=== PATIENT | male | born 1945 | race Caucasian/White ===

== ENCOUNTER 2017-02-11 00:32 | Inpatient (IN) | payer OTHER ==
[~2017-02-11] VITALS: Ht 177.8 cm; Wt 146.0 kg
[~2017-02-11 00:32] MED LIST: AUGMENTIN875 MG PO; BACTRIM,SEPT1 TABLET PO; CENTRUM SILVER1 EAC1 PO; ERGOCALCIF50000 UNIT PO; HYDROCHLOROTH12.5 M3 PO; IRON325 M1 PO; KEFLEX500 MG PO; LISINOPRIL2.5 MG PO; PRINZIDE 10-121 EACH PO; SYNTHROID125 MCG PO; TAMSULOSIN HCL0.4 MG PO; TYLENOL REGULA325 MG PO; VITAMIN B-12500 MC5 SL
[2017-02-11 01:06] LABS: HEMATOCRIT 34.4 % (38.0-50.0); MCH 36.3 PG (29.0-34.0); MCHC 34.3 G/DL (30.0-36.0); MCV 105.8 FL (86-99); MEAN PLAT.VOLUME 9.9 uM^3 (9.0-12.4); PLATELET COUNT 108 K/uL (156-360); RBC DIS.WIDTH-CV 15.2 % (11.8-14.6); RBC DIS.WIDTH-SD 59.4 % (39-53); RED BLOOD COUNT 3.25 M/uL (4.00-5.50); WHITE BLOOD COUNT 6.3 K/uL (4.1-10.2)
[2017-02-11 01:18] LABS: CHLORIDE 101 mEq/L (99-109); POTASSIUM 4.7 mEq/L (3.7-5.4); SODIUM 130 mEq/L (136-147)
[2017-02-11 01:20] LABS: GLUCOSE 129 mg/dL (70-99)
[2017-02-11 01:21] LABS: ANION GAP 7 MEQ/L (2-14)
[2017-02-11 01:22] LABS: TOTAL BILIRUBIN 3.7 mg/dL (0.0-1.0)
[2017-02-11 01:23] LABS: ALKALINE PHOSPHATASE 168 IU/L (3-129)
[2017-02-11 01:24] LABS: GFR ESTIMATE (CALCULATED) > 59 mL/min/
[2017-02-11 01:25] LABS: UREA NITROGEN (BUN) 16 mg/dL (9-23)
[2017-02-11 01:26] LABS: TROP-I INTERPRETATION NEGATIVE; TROPONIN-I < 0.01 ng/mL (0.0-0.30)
[2017-02-11 01:58] LABS: ADD MIUA? YES; BILIRUBIN NEGATIVE; BLOOD NEGATIVE; COLOR AMBER ((YELLOW)); GLUCOSE (STRIP) NEGATIVE; KETONES NEGATIVE; LEUKOCYTES NEGATIVE; NITRITE NEGATIVE; PROTEIN (STRIP) 30; SPECIFIC GRAVITY 1.019 (1.000-1.030)
[2017-02-11 02:27] LABS: BACTERIA RARE /HPF; CALCIUM OXALATE CRYSTALS OCC /HPF; CASTS NONE SEEN /LPF; CRYSTALS PRESENT; EPITHELIAL CELLS RARE /HPF; MUCUS NONE SEEN /LPF; RED BLOOD CELLS RARE /HPF (0-5); UCUL ADDED? NO; WHITE BLOOD CELLS NONE SEEN /HPF (0-5)
[2017-02-11] MEDS ORDERED: ALDACTONE100 MG PO (04:01)
[2017-02-11] MEDS ORDERED: LASIX40 MG PO (04:02)
[2017-02-11] MEDS ORDERED: ROXICODONE5 MG PO (04:04)
[2017-02-11 05:19] VITALS: BP 139/70
[2017-02-11 05:20] VITALS: BP 139/70
[2017-02-11 08:00] VITALS: BP 132/79
[2017-02-11 11:52] VITALS: BP 134/82
[2017-02-11] MEDS ORDERED: ERYTHROMYC1 APPLICAT BOTH EYES (12:12)
[2017-02-11] MEDS ORDERED: MULTI VITAMIN1 EACH PO (12:12)
[2017-02-11] MEDS ORDERED: VITAMIN D2000 UNIT PO (12:13)
[2017-02-11] MEDS ORDERED: TYLENOL REGULA325 MG PO (12:13)
[2017-02-11] MEDS ORDERED: ALEVE220 MG PO (12:18)
[2017-02-11 15:20] VITALS: BP 131/76
[2017-02-11 19:00] VITALS: BP 119/66
[2017-02-12] VITALS (7 sets, daily range): BP systolic 108–125; BP diastolic 52–83
[2017-02-12 05:32] LABS: EOSINOPHIL (%) 4.4 % (0-5); EOSINOPHIL COUNT 0.2 K/uL (0-0.3); HEMATOCRIT 32.5 % (38.0-50.0); IMMATURE GRANULOCYTE (%) 0.5 % (0.0-0.7); INSTRUMENT ABS NEUTROPHIL CT 1.8 K/uL; LYMPHOCYTE COUNT 0.9 K/uL (1.0-2.8); MCH 36.2 PG (29.0-34.0); MCHC 34.2 G/DL (30.0-36.0); MCV 105.9 FL (86-99); MEAN PLAT.VOLUME 9.9 uM^3 (9.0-12.4); MONOCYTE COUNT 0.9 K/uL (0-0.8); NEUTROPHIL (%) 47.1 % (45-76); NEUTROPHIL COUNT 1.8 K/uL (1.8-6.4); PLATELET COUNT 82 K/uL (156-360); RBC DIS.WIDTH-CV 15.5 % (11.8-14.6); RBC DIS.WIDTH-SD 59.9 % (39-53); RED BLOOD COUNT 3.07 M/uL (4.00-5.50); WHITE BLOOD COUNT 3.9 K/uL (4.1-10.2)
[2017-02-12 05:40] LABS: INTER. NORMALIZED RATIO 1.4; PROTHROMBIN TIME 15.6 SEC (10.2-12.9)
[2017-02-12 05:56] LABS: ALKALINE PHOSPHATASE 127 IU/L (3-129); ANION GAP 6 MEQ/L (2-14); CHLORIDE 101 MEQ/L (99-109); GFR ESTIMATE (CALCULATED) > 59 mL/min/; GLUCOSE 129 mg/dL (70-99); SAMPLE HEMOLYSIS CHECK 0; SAMPLE ICTERIC CHECK 1; SAMPLE LIPEMIA CHECK 0; SODIUM 131 MEQ/L (136-147); TOTAL BILIRUBIN 3.2 MG/DL (0.0-1.0); UREA NITROGEN (BUN) 12 mg/dL (9-23)
[2017-02-13 04:00] VITALS: BP 103/51
[2017-02-13 05:54] LABS: EOSINOPHIL COUNT 0.3 K/uL (0-0.3); HEMATOCRIT 34.9 % (38.0-50.0); IMMATURE GRANULOCYTE (%) 0.5 % (0.0-0.7); INSTRUMENT ABS NEUTROPHIL CT 1.8 K/uL; LYMPHOCYTE COUNT 1.1 K/uL (1.0-2.8); MCH 36.6 PG (29.0-34.0); MCHC 34.1 G/DL (30.0-36.0); MCV 107.4 FL (86-99); MONOCYTE (%) 21.8 % (3-12); MONOCYTE COUNT 0.9 K/uL (0-0.8); NEUTROPHIL (%) 42.6 % (45-76); NEUTROPHIL COUNT 1.8 K/uL (1.8-6.4); PLATELET COUNT 101 K/uL (156-360); RBC DIS.WIDTH-CV 15.3 % (11.8-14.6); RBC DIS.WIDTH-SD 61.1 % (39-53); RED BLOOD COUNT 3.25 M/uL (4.00-5.50); WHITE BLOOD COUNT 4.1 K/uL (4.1-10.2)
[2017-02-13 06:23] LABS: ALKALINE PHOSPHATASE 153 IU/L (3-129); ANION GAP 4 MEQ/L (2-14); CHLORIDE 98 MEQ/L (99-109); GFR ESTIMATE (CALCULATED) > 59 mL/min/; POTASSIUM 4.2 MEQ/L (3.7-5.4); SAMPLE HEMOLYSIS CHECK 0; SAMPLE ICTERIC CHECK 0; SAMPLE LIPEMIA CHECK 0; SODIUM 133 MEQ/L (136-147); TOTAL BILIRUBIN 2.8 MG/DL (0.0-1.0); UREA NITROGEN (BUN) 12 mg/dL (9-23)
[2017-02-13 06:24] LABS: GLUCOSE 95 mg/dL (70-99)
[2017-02-13 07:37] VITALS: BP 118/56
[2017-02-13] MEDS ORDERED: CEFADROXIL1 GM PO (08:11)
== END 2017-02-13 10:22 | disposition home or self-care (01) | DRG 603 ==
LOC: EME 00:32 → EDOF 03:12 → ENRESERV 03:17 → CANRESERV 03:34 → 4EAST 03:54 → EDOF 03:54 → ENRESERV 03:59 → 4EAST 05:09 → ENRESERV 02-13 09:06 → CANRESERV 02-13 09:06 → 4EAST 02-13 10:22
PROVIDERS: Emergency Medicine; Nurse Practitioner Adult Health; Physician Assistant Medical
DX: L03.115 Cellulitis of right lower limb (principal); K76.6 Portal hypertension; M48.54XA Collapsed vertebra, not elsewhere classified, thoracic region, initial encounter for fracture; R18.8 Other ascites; Z68.42 Body mass index [BMI] 45.0-49.9, adult; K74.60 Unspecified cirrhosis of liver; K75.81 Nonalcoholic steatohepatitis (NASH); D89.9 Disorder involving the immune mechanism, unspecified; I87.8 Other specified disorders of veins; E03.9 Hypothyroidism, unspecified; E66.01 Morbid (severe) obesity due to excess calories; G47.33 Obstructive sleep apnea (adult) (pediatric); N40.0 Benign prostatic hyperplasia without lower urinary tract symptoms; E55.9 Vitamin D deficiency, unspecified; L29.9 Pruritus, unspecified; Z96.652 Presence of left artificial knee joint; G89.3 Neoplasm related pain (acute) (chronic); Z91.19 Patient's noncompliance with other medical treatment and regimen; Z85.05 Personal history of malignant neoplasm of liver; Z85.820 Personal history of malignant melanoma of skin; Z99.89 Dependence on other enabling machines and devices; Z82.3 Family history of stroke
CPT/HCPCS: 71020; 71275; 80048; 80053; 81003; 83605; 84484; 85025; 85027; 85610; 87040; 93005; 99281; 99285; J0690; J1644

== ENCOUNTER 2017-04-08 03:54 | Emergency (ER) | payer OTHER ==
[~2017-04-08] VITALS: Ht 177.8 cm; Wt 149.0 kg
[~2017-04-08 03:54] MED LIST changes: +ALDACTONE100 MG PO; +ALEVE220 MG PO; +CEFADROXIL1 GM PO; +ERYTHROMYC1 APPLICAT BOTH EYES; +LASIX40 MG PO; +MULTI VITAMIN1 EACH PO; +ROXICODONE5 MG PO; -SYNTHROID125 MCG PO; +SYNTHROID137 MCG PO; +TYLENOL EXTRA500 MG PO; +VITAMIN D2000 UNIT PO
[2017-04-08 04:26] LABS: HEMATOCRIT 32.7 % (38.0-50.0); MCH 37.4 PG (29.0-34.0); MCHC 35.8 G/DL (30.0-36.0); MCV 104.5 FL (86-99); MEAN PLAT.VOLUME 9.1 uM^3 (9.0-12.4); PLATELET COUNT 106 K/uL (156-360); RBC DIS.WIDTH-CV 14.1 % (11.8-14.6); RBC DIS.WIDTH-SD 53.8 % (39-53); RED BLOOD COUNT 3.13 M/uL (4.00-5.50); WHITE BLOOD COUNT 7.2 K/uL (4.1-10.2)
[2017-04-08 04:36] LABS: CHLORIDE 99 mEq/L (99-109); POTASSIUM 4.2 mEq/L (3.7-5.4); SODIUM 130 mEq/L (136-147)
[2017-04-08 04:37] LABS: GLUCOSE 93 mg/dL (70-99)
[2017-04-08 04:39] LABS: ANION GAP 6 MEQ/L (2-14)
[2017-04-08 04:41] LABS: GFR ESTIMATE (CALCULATED) > 59 mL/min/ (58.99-99999)
[2017-04-08 04:42] LABS: UREA NITROGEN (BUN) 16 mg/dL (9-23)
[2017-04-08 04:49] LABS: TROP-I INTERPRETATION NEGATIVE; TROPONIN-I < 0.01 ng/mL (0.0-0.30)
[2017-04-08 05:17] LABS: TOTAL BILIRUBIN 4.4 mg/dL (0.0-1.0)
[2017-04-08 05:18] LABS: ALKALINE PHOSPHATASE 184 IU/L (3-129)
[2017-04-08 05:20] LABS: DIRECT BILIRUBIN 2.2 mg/dL (0.0-0.3)
[2017-04-08 08:30] VITALS: BP 101/73
== END 2017-04-08 08:50 | disposition home or self-care (01) ==
LOC: EME 03:54
DX: R60.0 Localized edema (principal); E80.7 Disorder of bilirubin metabolism, unspecified; I10 Essential (primary) hypertension; E03.9 Hypothyroidism, unspecified; Y93.84 Activity, sleeping; Z85.05 Personal history of malignant neoplasm of liver; Z92.21 Personal history of antineoplastic chemotherapy
CPT/HCPCS: 71020; 80048; 80076; 83880; 84484; 85027; 93005; 93971; 99281; 99285; J1940

== ENCOUNTER 2017-04-11 13:29 | Inpatient (IN) | payer OTHER ==
[~2017-04-11] VITALS: Ht 177.8 cm; Wt 146.3 kg
[2017-04-11 14:18] LABS: HEMATOCRIT 33.8 % (38.0-50.0); HEMOGLOBIN 11.8 G/DL (12.5-16.6); MCH 36.6 PG (29.0-34.0); MCHC 34.9 G/DL (30.0-36.0); PLATELET COUNT 128 K/uL (156-360); RBC DIS.WIDTH-CV 13.8 % (11.8-14.6); RBC DIS.WIDTH-SD 53.2 % (39-53); RED BLOOD COUNT 3.22 M/uL (4.00-5.50); WHITE BLOOD COUNT 4.6 K/uL (4.1-10.2)
[2017-04-11 14:26] LABS: ALBUMIN 2.5 g/dL (3.2-4.8); CHLORIDE 95 mEq/L (99-109); POTASSIUM 4.1 mEq/L (3.7-5.4); SODIUM 129 mEq/L (136-147)
[2017-04-11 14:28] LABS: GLUCOSE 135 mg/dL (70-99); TOTAL PROTEIN 6.3 g/dL (6.4-8.3)
[2017-04-11 14:31] LABS: TOTAL BILIRUBIN 5.4 mg/dL (0.0-1.0)
[2017-04-11 14:32] LABS: ALKALINE PHOSPHATASE 190 IU/L (3-129); GFR ESTIMATE (CALCULATED) > 59 mL/min/ (58.99-99999)
[2017-04-11 14:33] LABS: UREA NITROGEN (BUN) 14 mg/dL (9-23)
[2017-04-11 14:34] LABS: AST (GOT) 65 IU/L (2-34)
[2017-04-11 14:35] LABS: ALT (GPT) 34 IU/L (3-49)
[2017-04-11] MEDS ORDERED: BACTROBAN OINTM22 GM TP (16:44)
[2017-04-11] MEDS ORDERED: DILAUDID4 MG PO (16:44)
[2017-04-11 20:06] VITALS: BP 115/64
[2017-04-11 23:03] VITALS: BP 113/66
[2017-04-12 03:38] VITALS: BP 100/54
[2017-04-12 05:31] LABS: BASOPHIL (%) 0.8 % (0-1); EOSINOPHIL (%) 4.2 % (0-5); EOSINOPHIL COUNT 0.2 K/uL (0-0.3); HEMATOCRIT 31.7 % (38.0-50.0); HEMOGLOBIN 10.7 G/DL (12.5-16.6); IMMATURE GRANULOCYTE (%) 0.3 % (0.0-0.7); LYMPHOCYTE (%) 21.2 % (15-42); LYMPHOCYTE COUNT 0.8 K/uL (1.0-2.8); MCH 35.7 PG (29.0-34.0); MCHC 33.8 G/DL (30.0-36.0); MCV 105.7 FL (86-99); MONOCYTE (%) 23.3 % (3-12); MONOCYTE COUNT 0.9 K/uL (0-0.8); NEUTROPHIL (%) 50.2 % (45-76); NEUTROPHIL COUNT 1.9 K/uL (1.8-6.4); PLATELET COUNT 128 K/uL (156-360); RBC DIS.WIDTH-CV 13.8 % (11.8-14.6); RBC DIS.WIDTH-SD 54.2 % (39-53); WHITE BLOOD COUNT 3.8 K/uL (4.1-10.2)
[2017-04-12 05:57] LABS: CHLORIDE 99 MEQ/L (99-109); CREATININE 0.8 MG/DL (0.6-1.3); GFR ESTIMATE (CALCULATED) > 59 mL/min/ (58.99-99999); SODIUM 134 MEQ/L (136-147); UREA NITROGEN (BUN) 12 mg/dL (9-23)
[2017-04-12 05:58] LABS: GLUCOSE 95 mg/dL (70-99)
[2017-04-12 08:13] VITALS: BP 140/70
[2017-04-12 11:58] VITALS: BP 136/76
[2017-04-12 16:15] VITALS: BP 130/78
[2017-04-13 00:23] VITALS: BP 101/51
[2017-04-13 05:49] LABS: BASOPHIL (%) 0.8 % (0-1); EOSINOPHIL (%) 4.3 % (0-5); EOSINOPHIL COUNT 0.2 K/uL (0-0.3); HEMATOCRIT 31.7 % (38.0-50.0); HEMOGLOBIN 10.6 G/DL (12.5-16.6); IMMATURE GRANULOCYTE (%) 0.5 % (0.0-0.7); LYMPHOCYTE (%) 19.2 % (15-42); LYMPHOCYTE COUNT 0.8 K/uL (1.0-2.8); MCH 35.9 PG (29.0-34.0); MCHC 33.4 G/DL (30.0-36.0); MCV 107.5 FL (86-99); MONOCYTE (%) 20.5 % (3-12); MONOCYTE COUNT 0.8 K/uL (0-0.8); NEUTROPHIL (%) 54.7 % (45-76); NEUTROPHIL COUNT 2.2 K/uL (1.8-6.4); PLATELET COUNT 116 K/uL (156-360); RBC DIS.WIDTH-CV 13.9 % (11.8-14.6); RBC DIS.WIDTH-SD 55.5 % (39-53); RED BLOOD COUNT 2.95 M/uL (4.00-5.50)
[2017-04-13 06:33] LABS: ALBUMIN 2.1 G/DL (3.2-4.8); ALKALINE PHOSPHATASE 156 IU/L (3-129); ALT (GPT) 21 IU/L (3-49); AST (GOT) 52 IU/L (2-34); CHLORIDE 100 MEQ/L (99-109); CREATININE 0.7 MG/DL (0.6-1.3); GFR ESTIMATE (CALCULATED) > 59 mL/min/ (58.99-99999); POTASSIUM 3.9 MEQ/L (3.7-5.4); SODIUM 130 MEQ/L (136-147); TOTAL BILIRUBIN 3.3 MG/DL (0.0-1.0); UREA NITROGEN (BUN) 10 mg/dL (9-23); VANCOMYCIN, TROUGH 14.1 MCG/ML (10-20)
[2017-04-13 06:35] LABS: GLUCOSE 120 mg/dL (70-99)
[2017-04-13 08:15] VITALS: BP 125/69
[2017-04-13 15:23] VITALS: BP 122/57
[2017-04-14 00:32] VITALS: BP 101/56
[2017-04-14 07:27] LABS: BASOPHIL (%) 0.7 % (0-1); EOSINOPHIL (%) 5.2 % (0-5); EOSINOPHIL COUNT 0.2 K/uL (0-0.3); HEMATOCRIT 32.4 % (38.0-50.0); HEMOGLOBIN 10.8 G/DL (12.5-16.6); IMMATURE GRANULOCYTE (%) 1.1 % (0.0-0.7); LYMPHOCYTE (%) 18.1 % (15-42); LYMPHOCYTE COUNT 0.8 K/uL (1.0-2.8); MCHC 33.3 G/DL (30.0-36.0); MONOCYTE COUNT 0.8 K/uL (0-0.8); NEUTROPHIL (%) 57.9 % (45-76); NEUTROPHIL COUNT 2.7 K/uL (1.8-6.4); PLATELET COUNT 128 K/uL (156-360); RBC DIS.WIDTH-CV 13.9 % (11.8-14.6); RBC DIS.WIDTH-SD 55.1 % (39-53); WHITE BLOOD COUNT 4.6 K/uL (4.1-10.2)
[2017-04-14 08:08] LABS: CHLORIDE 100 MEQ/L (99-109); CREATININE 0.7 MG/DL (0.6-1.3); GFR ESTIMATE (CALCULATED) > 59 mL/min/ (58.99-99999); GLUCOSE 107 mg/dL (70-99); POTASSIUM 4.4 MEQ/L (3.7-5.4); SODIUM 133 MEQ/L (136-147); UREA NITROGEN (BUN) 9 mg/dL (9-23)
[2017-04-14 08:44] VITALS: BP 126/61
[2017-04-14 13:37] LABS: APPEARANCE CLEAR ((CLEAR)); BILIRUBIN NEGATIVE; BLOOD SMALL; COLOR STRAW ((YELLOW)); GLUCOSE (STRIP) NEGATIVE; KETONES NEGATIVE; LEUKOCYTES NEGATIVE; NITRITE NEGATIVE; PROTEIN (STRIP) NEGATIVE; SPECIFIC GRAVITY 1.004 (1.000-1.030); UROBILINOGEN 0.2 MG/DL (0.2-1.0)
[2017-04-14 14:01] LABS: BACTERIA NONE SEEN /HPF; EPITHELIAL CELLS RARE /HPF; HYALINE CASTS 0-5 /LPF; MUCUS TRACE /LPF; RED BLOOD CELLS 0-5 /HPF (0-5); WHITE BLOOD CELLS 0-5 /HPF (0-5)
[2017-04-14 16:30] VITALS: BP 130/68
[2017-04-14 23:50] VITALS: BP 125/71
[2017-04-15 05:42] LABS: HEMOGLOBIN 10.3 G/DL (12.5-16.6); MCH 37.3 PG (29.0-34.0); MCHC 34.3 G/DL (30.0-36.0); MCV 108.7 FL (86-99); PLATELET COUNT 105 K/uL (156-360); RBC DIS.WIDTH-CV 14.1 % (11.8-14.6); RBC DIS.WIDTH-SD 55.8 % (39-53); RED BLOOD COUNT 2.76 M/uL (4.00-5.50); WHITE BLOOD COUNT 3.7 K/uL (4.1-10.2)
[2017-04-15 06:08] LABS: ALBUMIN 1.9 G/DL (3.2-4.8); ALKALINE PHOSPHATASE 148 IU/L (3-129); ALT (GPT) 9 IU/L (3-49); AST (GOT) 45 IU/L (2-34); CHLORIDE 97 MEQ/L (99-109); CREATININE 0.7 MG/DL (0.6-1.3); GFR ESTIMATE (CALCULATED) > 59 mL/min/ (58.99-99999); GLUCOSE 112 mg/dL (70-99); POTASSIUM 3.7 MEQ/L (3.7-5.4); SODIUM 129 MEQ/L (136-147); TOTAL BILIRUBIN 3.1 MG/DL (0.0-1.0); TOTAL PROTEIN 4.8 G/DL (6.4-8.3); UREA NITROGEN (BUN) 9 mg/dL (9-23)
[2017-04-15 08:15] VITALS: BP 107/55
[2017-04-15 16:36] VITALS: BP 110/63
[2017-04-15 23:53] VITALS: BP 109/60
[2017-04-16 06:25] LABS: HEMATOCRIT 31.4 % (38.0-50.0); HEMOGLOBIN 10.7 G/DL (12.5-16.6); MCH 36.4 PG (29.0-34.0); MCHC 34.1 G/DL (30.0-36.0); MCV 106.8 FL (86-99); PLATELET COUNT 118 K/uL (156-360); RBC DIS.WIDTH-SD 54.8 % (39-53); RED BLOOD COUNT 2.94 M/uL (4.00-5.50)
[2017-04-16 06:48] LABS: CHLORIDE 98 MEQ/L (99-109); CREATININE 0.8 MG/DL (0.6-1.3); GFR ESTIMATE (CALCULATED) > 59 mL/min/ (58.99-99999); GLUCOSE 91 mg/dL (70-99); POTASSIUM 3.9 MEQ/L (3.7-5.4); SODIUM 131 MEQ/L (136-147); UREA NITROGEN (BUN) 10 mg/dL (9-23)
[2017-04-16 08:14] VITALS: BP 103/58
[2017-04-16] MEDS ORDERED: KEFLEX500 MG PO (12:23)
== END 2017-04-16 17:00 | disposition home health service (06) | DRG 603 ==
LOC: EME 13:29 → 3EAST 17:56 → EDOF 17:56 → ENRESERV 18:10 → 3EAST 19:51
PROVIDERS: Hospitalist; Internal Medicine; Physician Assistant; Student in an Organized Health Care Education/Training Program
DX: L03.115 Cellulitis of right lower limb (principal); Z91.19 Patient's noncompliance with other medical treatment and regimen; E87.1 Hypo-osmolality and hyponatremia; D63.8 Anemia in other chronic diseases classified elsewhere; E83.110 Hereditary hemochromatosis; D69.6 Thrombocytopenia, unspecified; I87.2 Venous insufficiency (chronic) (peripheral); L97.919 Non-pressure chronic ulcer of unspecified part of right lower leg with unspecified severity; L97.929 Non-pressure chronic ulcer of unspecified part of left lower leg with unspecified severity; K72.10 Chronic hepatic failure without coma; K75.81 Nonalcoholic steatohepatitis (NASH); I89.0 Lymphedema, not elsewhere classified; G47.33 Obstructive sleep apnea (adult) (pediatric); E66.01 Morbid (severe) obesity due to excess calories; Z68.42 Body mass index [BMI] 45.0-49.9, adult; E03.9 Hypothyroidism, unspecified; R35.0 Frequency of micturition; R60.0 Localized edema; I10 Essential (primary) hypertension; N40.1 Benign prostatic hyperplasia with lower urinary tract symptoms; Z80.8 Family history of malignant neoplasm of other organs or systems; Z82.3 Family history of stroke; Z85.05 Personal history of malignant neoplasm of liver; Z85.820 Personal history of malignant melanoma of skin; Z96.652 Presence of left artificial knee joint
CPT/HCPCS: 71046; 80048; 80053; 80076; 80202; 81003; 83605; 83880; 84484; 85025; 85027; 87040; 87086; 93005; 93971; 97530 GO; 99281; 99285; J0295; J0690; J1650; J1940; J2270; J3370; J7030; J7050

== ENCOUNTER 2017-05-06 18:26 | Emergency (ER) | payer OTHER ==
[~2017-05-06] VITALS: Ht 177.8 cm; Wt 147.7 kg
[~2017-05-06 18:26] MED LIST changes: +BACTROBAN OINTM22 GM TP; +DILAUDID4 MG PO
[2017-05-06 19:27] LABS: HEMATOCRIT 35.1 % (38.0-50.0); HEMOGLOBIN 12.1 G/DL (12.5-16.6); MCH 36.2 PG (29.0-34.0); MCHC 34.5 G/DL (30.0-36.0); MCV 105.1 FL (86-99); PLATELET COUNT 141 K/uL (156-360); RBC DIS.WIDTH-CV 15.3 % (11.8-14.6); RBC DIS.WIDTH-SD 59.6 % (39-53); RED BLOOD COUNT 3.34 M/uL (4.00-5.50); WHITE BLOOD COUNT 8.1 K/uL (4.1-10.2)
[2017-05-06 19:37] LABS: ALBUMIN 2.6 g/dL (3.2-4.8); CHLORIDE 98 mEq/L (99-109); POTASSIUM 5.2 mEq/L (3.7-5.4); SODIUM 129 mEq/L (136-147)
[2017-05-06 19:40] LABS: GLUCOSE 96 mg/dL (70-99); TOTAL PROTEIN 6.3 g/dL (6.4-8.3)
[2017-05-06 19:42] LABS: TOTAL BILIRUBIN 5.3 mg/dL (0.0-1.0)
[2017-05-06 19:43] LABS: ALKALINE PHOSPHATASE 259 IU/L (3-129); GFR ESTIMATE (CALCULATED) > 59 mL/min/ (58.99-99999)
[2017-05-06 19:44] LABS: UREA NITROGEN (BUN) 20 mg/dL (9-23)
[2017-05-06 19:45] LABS: AST (GOT) 81 IU/L (2-34)
[2017-05-06 19:46] LABS: ALT (GPT) 34 IU/L (3-49)
[2017-05-06 19:47] LABS: LIPASE 47 U/L (1.0-51.0)
[2017-05-06] MEDS ORDERED: BISACODYL SUPP10 MG PR (21:16)
[2017-05-06 21:38] VITALS: BP 98/50
== END 2017-05-06 21:39 | disposition home or self-care (01) ==
LOC: EME 18:26
DX: R10.84 Generalized abdominal pain (principal); I10 Essential (primary) hypertension; E03.9 Hypothyroidism, unspecified; Z85.05 Personal history of malignant neoplasm of liver
CPT/HCPCS: 74018; 80053; 81003; 83690; 85027; 99281; 99283

== ENCOUNTER 2017-05-13 09:17 | Inpatient (IN) | payer OTHER ==
[~2017-05-13] VITALS: Ht 177.8 cm; Wt 153.0 kg
[~2017-05-13 09:17] MED LIST changes: +BISACODYL SUPP10 MG PR
[2017-05-13 10:34] LABS: HEMATOCRIT 34.2 % (38.0-50.0); MCH 37.2 PG (29.0-34.0); MCHC 35.1 G/DL (30.0-36.0); MCV 105.9 FL (86-99); RBC DIS.WIDTH-CV 16.3 % (11.8-14.6); RBC DIS.WIDTH-SD 63.4 % (39-53); RED BLOOD COUNT 3.23 M/uL (4.00-5.50); WHITE BLOOD COUNT 8.2 K/uL (4.1-10.2)
[2017-05-13 10:36] LABS: PLATELET COUNT 204 K/uL (156-360)
[2017-05-13 10:41] LABS: INTER. NORMALIZED RATIO 1.5
[2017-05-13 10:44] LABS: PTT 34.8 SEC (25-37)
[2017-05-13 10:55] LABS: ALBUMIN 2.6 g/dL (3.2-4.8)
[2017-05-13 10:56] LABS: CHLORIDE 91 mEq/L (99-109); POTASSIUM 4.9 mEq/L (3.7-5.4); SODIUM 124 mEq/L (136-147)
[2017-05-13 10:57] LABS: TOTAL PROTEIN 6.4 g/dL (6.4-8.3)
[2017-05-13 10:58] LABS: GLUCOSE 95 mg/dL (70-99)
[2017-05-13 11:00] LABS: TROP-I INTERPRETATION NEGATIVE; TROPONIN-I 0.02 ng/mL (0.0-0.30)
[2017-05-13 11:01] LABS: ALKALINE PHOSPHATASE 410 IU/L (3-129); TOTAL BILIRUBIN 6.9 mg/dL (0.0-1.0)
[2017-05-13 11:02] LABS: GFR ESTIMATE (CALCULATED) > 59 mL/min/ (58.99-99999)
[2017-05-13 11:03] LABS: UREA NITROGEN (BUN) 24 mg/dL (9-23)
[2017-05-13 11:03] LABS: ALT (GPT) 41 IU/L (3-49); AST (GOT) 79 IU/L (2-34); DIRECT BILIRUBIN 3.7 mg/dL (0.0-0.3)
[2017-05-13] MEDS ORDERED: COLACE100 MG PO (14:04)
[2017-05-13 15:20] VITALS: BP 130/68
[2017-05-13 20:32] VITALS: BP 100/59
[2017-05-13 23:58] VITALS: BP 94/56
[2017-05-14 04:02] VITALS: BP 121/56
[2017-05-14 06:36] LABS: HEMATOCRIT 30.6 % (38.0-50.0); HEMOGLOBIN 10.5 G/DL (12.5-16.6); MCH 36.3 PG (29.0-34.0); MCHC 34.3 G/DL (30.0-36.0); MCV 105.9 FL (86-99); PLATELET COUNT 144 K/uL (156-360); RBC DIS.WIDTH-CV 17.2 % (11.8-14.6); RBC DIS.WIDTH-SD 66.7 % (39-53); RED BLOOD COUNT 2.89 M/uL (4.00-5.50); WHITE BLOOD COUNT 13.2 K/uL (4.1-10.2)
[2017-05-14 06:39] LABS: A/G RATIO 0.7 (1.1-1.8); ALBUMIN 2.1 G/DL (3.4-5.0); CHLORIDE 93 MEQ/L (99-109); GFR ESTIMATE (CALCULATED) > 59 mL/min/ (58.99-99999); GLOBULINS 3.1 G/DL (2.3-3.5); GLUCOSE 80 mg/dL (70-99); POTASSIUM 4.7 MEQ/L (3.7-5.4); SODIUM 125 MEQ/L (136-147); TOTAL PROTEIN 5.2 G/DL (6.4-8.2); UREA NITROGEN (BUN) 24 mg/dL (9-23)
[2017-05-14 07:16] LABS: ABS NEUTROPHIL COUNT 11.9; ANISOCYTOSIS 2+; BAND NEUTROPHILS 4.4 % (0-8.0); EOSINOPHIL ABS CT 0; MACROCYTES 3+; METAMYELOCYTES 1.7 %; MONOCYTES 5.2 % (0-9.0); MYELOCYTES 2.6 %; PLAT.SUFFICIENCY DECREASED; SEG.NEUTROPHILS 86.1 % (46.0-76.0)
[2017-05-14 07:58] VITALS: BP 114/54
[2017-05-14 15:16] VITALS: BP 118/63
[2017-05-14 19:38] VITALS: BP 101/56
[2017-05-14 23:36] VITALS: BP 118/64
[2017-05-15 03:23] VITALS: BP 133/63
[2017-05-15 08:26] VITALS: BP 134/77
[2017-05-15 09:09] LABS: HEMATOCRIT 32.6 % (38.0-50.0); HEMOGLOBIN 10.9 G/DL (12.5-16.6); MCH 36.3 PG (29.0-34.0); MCHC 33.4 G/DL (30.0-36.0); MCV 108.7 FL (86-99); PLATELET COUNT 145 K/uL (156-360); RBC DIS.WIDTH-CV 17.3 % (11.8-14.6); RBC DIS.WIDTH-SD 69.5 % (39-53); WHITE BLOOD COUNT 7.4 K/uL (4.1-10.2)
[2017-05-15 09:38] LABS: CHLORIDE 99 mEq/L (99-109); POTASSIUM 4.7 mEq/L (3.7-5.4); SODIUM 129 mEq/L (136-147)
[2017-05-15 09:42] LABS: GLUCOSE 110 mg/dL (70-99)
[2017-05-15 09:43] LABS: CREATININE 0.8 mg/dL (0.6-1.3); GFR ESTIMATE (CALCULATED) > 59 mL/min/ (58.99-99999)
[2017-05-15 09:44] LABS: UREA NITROGEN (BUN) 22 mg/dL (9-23)
[2017-05-15 12:18] VITALS: BP 120/58
[2017-05-15 13:05] LABS: ALBUMIN 2.09 G/DL (3.6-4.9); ALPHA-1 GLOBULIN 0.41 G/DL (0.15-0.40); ALPHA-2 GLOBULIN 0.41 G/DL (0.45-0.85); BETA-GLOBULIN 0.79 G/DL (0.65-1.15); GAMMA-GLOBULIN 1.51 G/DL (0.60-1.35)
[2017-05-15 16:01] VITALS: BP 127/58
[2017-05-15 23:19] VITALS: BP 121/64
[2017-05-16 07:58] VITALS: BP 123/65
[2017-05-16 16:23] VITALS: BP 108/68
[2017-05-16 22:13] LABS: CREATININE 0.7 MG/DL (0.6-1.3); GFR ESTIMATE (CALCULATED) > 59 mL/min/ (58.99-99999)
[2017-05-16 22:14] LABS: VANCOMYCIN, TROUGH 10.3 MCG/ML (10-20)
[2017-05-16 23:41] VITALS: BP 114/61
[2017-05-17 08:27] VITALS: BP 120/62
[2017-05-17 13:40] VITALS: BP 131/71
[2017-05-17 15:46] VITALS: BP 137/68
[2017-05-17 23:24] VITALS: BP 107/67
[2017-05-18 08:16] VITALS: BP 124/17
[2017-05-18 11:35] VITALS: BP 116/68
[2017-05-18 11:35] LABS: HEMATOCRIT 31.9 % (38.0-50.0); HEMOGLOBIN 10.7 G/DL (12.5-16.6); MCH 36.5 PG (29.0-34.0); MCHC 33.5 G/DL (30.0-36.0); MCV 108.9 FL (86-99); PLATELET COUNT 110 K/uL (156-360); RBC DIS.WIDTH-CV 17.4 % (11.8-14.6); RBC DIS.WIDTH-SD 69.5 % (39-53); RED BLOOD COUNT 2.93 M/uL (4.00-5.50); WHITE BLOOD COUNT 5.3 K/uL (4.1-10.2)
[2017-05-18 12:15] LABS: ALBUMIN 2.1 G/DL (3.2-4.8); ALKALINE PHOSPHATASE 401 IU/L (3-129); ALT (GPT) 34 IU/L (3-49); AST (GOT) 74 IU/L (2-34); CHLORIDE 97 MEQ/L (99-109); CREATININE 0.7 MG/DL (0.6-1.3); GFR ESTIMATE (CALCULATED) > 59 mL/min/ (58.99-99999); GLUCOSE 122 mg/dL (70-99); POTASSIUM 4.1 MEQ/L (3.7-5.4); SODIUM 130 MEQ/L (136-147); TOTAL BILIRUBIN 4.9 MG/DL (0.0-1.0); TOTAL PROTEIN 5.5 G/DL (6.4-8.3); UREA NITROGEN (BUN) 17 mg/dL (9-23)
[2017-05-18] MEDS ORDERED: PERCOCET 5/31 TABLET PO (15:17)
[2017-05-18] MEDS ORDERED: AUGMENTIN875 MG PO (15:17)
[2017-05-18 16:27] VITALS: BP 117/56
[2017-05-18 23:04] VITALS: BP 122/58
[2017-05-19 07:41] VITALS: BP 142/78
[2017-05-19 16:48] VITALS: BP 128/67
[2017-05-19 23:15] VITALS: BP 129/59
[2017-05-20 05:56] LABS: BASOPHIL COUNT 0.1 K/uL (0-0.1); EOSINOPHIL (%) 4.6 % (0-5); EOSINOPHIL COUNT 0.2 K/uL (0-0.3); HEMATOCRIT 32.8 % (38.0-50.0); HEMOGLOBIN 10.9 G/DL (12.5-16.6); IMMATURE GRANULOCYTE (%) 2.2 % (0.0-0.7); LYMPHOCYTE (%) 14.5 % (15-42); LYMPHOCYTE COUNT 0.7 K/uL (1.0-2.8); MCH 36.7 PG (29.0-34.0); MCHC 33.2 G/DL (30.0-36.0); MCV 110.4 FL (86-99); MONOCYTE (%) 17.4 % (3-12); MONOCYTE COUNT 0.9 K/uL (0-0.8); NEUTROPHIL (%) 60.3 % (45-76); NEUTROPHIL COUNT 3.1 K/uL (1.8-6.4); PLATELET COUNT 110 K/uL (156-360); RBC DIS.WIDTH-SD 73.4 % (39-53); RED BLOOD COUNT 2.97 M/uL (4.00-5.50); WHITE BLOOD COUNT 5.1 K/uL (4.1-10.2)
[2017-05-20 06:26] LABS: CHLORIDE 94 MEQ/L (99-109); CREATININE 0.7 MG/DL (0.6-1.3); GFR ESTIMATE (CALCULATED) > 59 mL/min/ (58.99-99999); GLUCOSE 92 mg/dL (70-99); POTASSIUM 4.8 MEQ/L (3.7-5.4); SODIUM 133 MEQ/L (136-147); UREA NITROGEN (BUN) 15 mg/dL (9-23)
[2017-05-20 08:30] VITALS: BP 126/73
[2017-05-20 16:21] VITALS: BP 112/55
[2017-05-20 23:52] VITALS: BP 126/73
[2017-05-21 06:10] LABS: BASOPHIL (%) 0.9 % (0-1); BASOPHIL COUNT 0.1 K/uL (0-0.1); EOSINOPHIL (%) 3.3 % (0-5); EOSINOPHIL COUNT 0.2 K/uL (0-0.3); HEMOGLOBIN 10.1 G/DL (12.5-16.6); IMMATURE GRANULOCYTE (%) 2.1 % (0.0-0.7); LYMPHOCYTE (%) 13.9 % (15-42); LYMPHOCYTE COUNT 0.8 K/uL (1.0-2.8); MCH 36.1 PG (29.0-34.0); MCHC 32.6 G/DL (30.0-36.0); MCV 110.7 FL (86-99); MONOCYTE (%) 17.2 % (3-12); NEUTROPHIL (%) 62.6 % (45-76); NEUTROPHIL COUNT 3.7 K/uL (1.8-6.4); PLATELET COUNT 126 K/uL (156-360); RBC DIS.WIDTH-CV 18.2 % (11.8-14.6); RBC DIS.WIDTH-SD 73.9 % (39-53); WHITE BLOOD COUNT 5.8 K/uL (4.1-10.2)
[2017-05-21 06:31] LABS: CHLORIDE 94 MEQ/L (99-109); CREATININE 0.8 MG/DL (0.6-1.3); GFR ESTIMATE (CALCULATED) > 59 mL/min/ (58.99-99999); GLUCOSE 89 mg/dL (70-99); POTASSIUM 4.6 MEQ/L (3.7-5.4); SODIUM 129 MEQ/L (136-147); UREA NITROGEN (BUN) 16 mg/dL (9-23)
[2017-05-21 08:30] VITALS: BP 128/61
[2017-05-21] MEDS ORDERED: FUROSEMIDE40 MG PO (13:14)
[2017-05-21] MEDS ORDERED: AUGMENTIN875 MG PO (13:14)
== END 2017-05-21 14:46 | DRG 167 ==
LOC: EME 09:17 → 3EAST 12:36 → EDOF 12:36 → ENRESERV 12:37 → 3EAST 14:59
PROVIDERS: Emergency Medicine; Hospitalist; Internal Medicine; Internal Medicine Hematology & Oncology; Physician Assistant
PROC: 0PB43ZX Excision of Thoracic Vertebra, Percutaneous Approach, Diagnostic (ICD-10-PCS; principal; 2017-05-17)
DX: J18.9 Pneumonia, unspecified organism (principal); Y95 Nosocomial condition; C22.0 Liver cell carcinoma; E87.1 Hypo-osmolality and hyponatremia; E87.70 Fluid overload, unspecified; M48.54XA Collapsed vertebra, not elsewhere classified, thoracic region, initial encounter for fracture; R18.8 Other ascites; E66.01 Morbid (severe) obesity due to excess calories; Z68.42 Body mass index [BMI] 45.0-49.9, adult; S31.109A Unspecified open wound of abdominal wall, unspecified quadrant without penetration into peritoneal cavity, initial encounter; L98.499 Non-pressure chronic ulcer of skin of other sites with unspecified severity; K75.81 Nonalcoholic steatohepatitis (NASH); K72.10 Chronic hepatic failure without coma; K74.69 Other cirrhosis of liver; E03.9 Hypothyroidism, unspecified; I89.0 Lymphedema, not elsewhere classified; D64.9 Anemia, unspecified; I87.2 Venous insufficiency (chronic) (peripheral); B35.6 Tinea cruris; I10 Essential (primary) hypertension; R09.02 Hypoxemia; G89.29 Other chronic pain; M54.5 Low back pain; Z91.81 History of falling; Z96.652 Presence of left artificial knee joint; Z85.820 Personal history of malignant melanoma of skin; Z92.21 Personal history of antineoplastic chemotherapy
CPT/HCPCS: 36415; 71046; 71275; 72129; 72132; 72157; 72158; 74177; 77012; 80048; 80053; 80076; 80202; 82565; 83880; 83883 90; 84165; 84484; 85025; 85027; 85379; 85610; 85730; 86334; 87040; 88305; 88341 TC; 88342 TC; 93005; 94799; 97530 GO; 97530 GP; 99281; 99285; A6260; J0456; J0696; J1650; J1940; J2060; J2270; J2543; J3010; J3370; J7030; J7040; J7050

== ENCOUNTER 2017-05-31 09:34 | Observation (INO) | payer OTHER ==
[~2017-05-31] VITALS: Ht 177.8 cm; Wt 156.1 kg
[~2017-05-31 09:34] MED LIST changes: +COLACE100 MG PO; +FUROSEMIDE40 MG PO; +PERCOCET 5/31 TABLET PO
[2017-05-31 11:21] LABS: ALBUMIN 2.3 g/dL (3.2-4.8)
[2017-05-31 11:22] LABS: CHLORIDE 94 mEq/L (99-109); SODIUM 127 mEq/L (136-147)
[2017-05-31 11:24] LABS: GLUCOSE 120 mg/dL (70-99); TOTAL PROTEIN 5.8 g/dL (6.4-8.3)
[2017-05-31 11:26] LABS: TOTAL BILIRUBIN 4.8 mg/dL (0.0-1.0)
[2017-05-31 11:27] LABS: ALKALINE PHOSPHATASE 512 IU/L (3-129)
[2017-05-31 11:28] LABS: CREATININE 0.9 mg/dL (0.6-1.3); GFR ESTIMATE (CALCULATED) > 59 mL/min/ (58.99-99999)
[2017-05-31 11:29] LABS: UREA NITROGEN (BUN) 19 mg/dL (9-23)
[2017-05-31 11:31] LABS: ALT (GPT) 65 IU/L (3-49); AST (GOT) 142 IU/L (2-34)
[2017-05-31 11:33] LABS: TROP-I INTERPRETATION NEGATIVE; TROPONIN-I < 0.01 ng/mL (0.0-0.30)
[2017-05-31 12:13] LABS: HEMATOCRIT 29.3 % (38.0-50.0); HEMOGLOBIN 10.3 G/DL (12.5-16.6); MCH 37.9 PG (29.0-34.0); MCHC 35.2 G/DL (30.0-36.0); MCV 107.7 FL (86-99); PLATELET COUNT 91 K/uL (156-360); RBC DIS.WIDTH-CV 19.6 % (11.8-14.6); RBC DIS.WIDTH-SD 76.6 % (39-53); RED BLOOD COUNT 2.72 M/uL (4.00-5.50); WHITE BLOOD COUNT 2.6 K/uL (4.1-10.2)
[2017-05-31 13:16] LABS: ABS NEUTROPHIL COUNT 1.9; ANISOCYTOSIS 3+; BAND NEUTROPHILS 1.7 % (0-8.0); EOSINOPHIL ABS CT 0; EOSINOPHILS 0.9 % (0-5.0); LYMPHOCYTES 17.4 % (15.0-45.0); MACROCYTES 3+; METAMYELOCYTES 0.9 %; MONOCYTES 7.8 % (0-9.0); NUCLEATED RBC'S 0.9; PLAT.SUFFICIENCY DECREASED; SEG.NEUTROPHILS 71.3 % (46.0-76.0)
[2017-05-31 14:47] LABS: INTER. NORMALIZED RATIO 1.3
[2017-05-31 14:50] LABS: PTT 38.2 SEC (25-37)
[2017-05-31] MEDS ORDERED: OXYCODONE HCL5 MG PO (16:27)
[2017-05-31 17:20] VITALS: BP 143/66
[2017-05-31 18:14] LABS: TROP-I INTERPRETATION NEGATIVE; TROPONIN-I < 0.01 ng/mL (0.0-0.30)
[2017-05-31 20:00] VITALS: BP 114/61
[2017-05-31 23:28] LABS: TROP-I INTERPRETATION NEGATIVE; TROPONIN-I < 0.01 ng/mL (0.0-0.30)
[2017-06-01 00:41] VITALS: BP 118/63
[2017-06-01 03:43] VITALS: BP 124/60
[2017-06-01 06:38] LABS: HEMATOCRIT 30.2 % (38.0-50.0); HEMOGLOBIN 10.3 G/DL (12.5-16.6); MCH 36.9 PG (29.0-34.0); MCHC 34.1 G/DL (30.0-36.0); MCV 108.2 FL (86-99); NRBC (%) 0.8 /100 WBC (0-0); PLATELET COUNT 106 K/uL (156-360); RBC DIS.WIDTH-CV 19.6 % (11.8-14.6); RBC DIS.WIDTH-SD 77.5 % (39-53); RED BLOOD COUNT 2.79 M/uL (4.00-5.50); WHITE BLOOD COUNT 2.6 K/uL (4.1-10.2)
[2017-06-01 07:15] LABS: ALKALINE PHOSPHATASE 437 IU/L (3-129); ALT (GPT) 55 IU/L (3-49); AST (GOT) 118 IU/L (2-34); CHLORIDE 94 MEQ/L (99-109); CREATININE 0.8 MG/DL (0.6-1.3); GFR ESTIMATE (CALCULATED) > 59 mL/min/ (58.99-99999); GLUCOSE 99 mg/dL (70-99); POTASSIUM 4.2 MEQ/L (3.7-5.4); SODIUM 128 MEQ/L (136-147); TOTAL BILIRUBIN 4.4 MG/DL (0.0-1.0); TOTAL PROTEIN 5.2 G/DL (6.4-8.3); UREA NITROGEN (BUN) 18 mg/dL (9-23)
[2017-06-01 08:30] VITALS: BP 117/59
[2017-06-01 11:29] LABS: APPEARANCE SL.HAZY ((CLEAR)); BILIRUBIN NEGATIVE; BLOOD NEGATIVE; COLOR AMBER ((YELLOW)); GLUCOSE (STRIP) NEGATIVE; KETONES NEGATIVE; LEUKOCYTES TRACE; NITRITE NEGATIVE; PROTEIN (STRIP) 30; SPECIFIC GRAVITY 1.024 (1.000-1.030)
[2017-06-01 11:41] LABS: BACTERIA NONE SEEN /HPF; CALCIUM OXALATE CRYSTALS 3+ /HPF; EPITHELIAL CELLS RARE /HPF; HYALINE CASTS 0-5 /LPF; MUCUS 1+ /LPF; RED BLOOD CELLS 0-5 /HPF (0-5); UCUL ADDED? YES
[2017-06-01 12:18] VITALS: BP 136/70
== END 2017-06-01 14:39 | disposition home health service (06) ==
LOC: EME 09:34 → EDOF 14:01 → 5WEST 14:01 → ENRESERV 14:05 → EDOF 14:35 → ENRESERV 16:23 → 5WEST 16:59
PROVIDERS: Emergency Medicine; Internal Medicine
DX: R07.89 Other chest pain (principal); E87.70 Fluid overload, unspecified; R06.02 Shortness of breath; C22.0 Liver cell carcinoma; Z87.01 Personal history of pneumonia (recurrent); I89.0 Lymphedema, not elsewhere classified; E87.1 Hypo-osmolality and hyponatremia; E03.9 Hypothyroidism, unspecified; E66.01 Morbid (severe) obesity due to excess calories; Z68.42 Body mass index [BMI] 45.0-49.9, adult; Z92.21 Personal history of antineoplastic chemotherapy
CPT/HCPCS: 71046; 80053; 81003; 82948; 83880; 84484; 85025; 85027; 85610; 85730; 87077; 87086; 87186; 93005; 99281; 99285; G0378; J1650; J1940

== ENCOUNTER 2017-06-28 14:57 | Inpatient (IN) | payer OTHER ==
[~2017-06-28] VITALS: Ht 162.6 cm; Wt 147.8 kg
[~2017-06-28 14:57] MED LIST changes: +OXYCODONE HCL5 MG PO; -SYNTHROID137 MCG PO; +SYNTHROID150 MCG PO
[2017-06-28 15:44] LABS: BASOPHIL (%) 0.9 % (0-1); EOSINOPHIL (%) 2.4 % (0-5); EOSINOPHIL COUNT 0.1 K/uL (0-0.3); HEMOGLOBIN 10.5 G/DL (12.5-16.6); IMMATURE GRANULOCYTE (%) 1.2 % (0.0-0.7); LYMPHOCYTE (%) 13.5 % (15-42); LYMPHOCYTE COUNT 0.6 K/uL (1.0-2.8); MCV 117.2 FL (86-99); MONOCYTE (%) 20.1 % (3-12); MONOCYTE COUNT 0.9 K/uL (0-0.8); NEUTROPHIL (%) 61.9 % (45-76); NEUTROPHIL COUNT 2.6 K/uL (1.8-6.4); PLATELET COUNT 166 K/uL (156-360); RBC DIS.WIDTH-CV 19.1 % (11.8-14.6); RBC DIS.WIDTH-SD 83.6 % (39-53); RED BLOOD COUNT 2.56 M/uL (4.00-5.50); WHITE BLOOD COUNT 4.2 K/uL (4.1-10.2)
[2017-06-28 15:49] LABS: CHLORIDE 99 mEq/L (99-109); POTASSIUM 5.6 mEq/L (3.7-5.4); SODIUM 128 mEq/L (136-147)
[2017-06-28 15:50] LABS: GLUCOSE 107 mg/dL (70-99)
[2017-06-28 15:54] LABS: CREATININE 0.8 mg/dL (0.6-1.3); GFR ESTIMATE (CALCULATED) > 59 mL/min/ (58.99-99999)
[2017-06-28 15:55] LABS: UREA NITROGEN (BUN) 20 mg/dL (9-23)
[2017-06-28 18:10] LABS: APPEARANCE CLEAR ((CLEAR)); BILIRUBIN SMALL; BLOOD NEGATIVE; COLOR AMBER ((YELLOW)); GLUCOSE (STRIP) NEGATIVE; KETONES NEGATIVE; LEUKOCYTES NEGATIVE; NITRITE NEGATIVE; PROTEIN (STRIP) NEGATIVE; SPECIFIC GRAVITY 1.025 (1.000-1.030); UCUL ADDED? NO
[2017-06-28 18:45] LABS: INTER. NORMALIZED RATIO 1.5
[2017-06-28 18:48] LABS: PTT 35.7 SEC (25-37)
[2017-06-28 18:59] LABS: ALBUMIN 2.4 g/dL (3.2-4.8)
[2017-06-28 19:02] LABS: TOTAL PROTEIN 6.2 g/dL (6.4-8.3)
[2017-06-28 19:05] LABS: ALKALINE PHOSPHATASE 397 IU/L (3-129)
[2017-06-28 19:07] LABS: AST (GOT) 95 IU/L (2-34); DIRECT BILIRUBIN 4.5 mg/dL (0.0-0.3)
[2017-06-28 19:08] LABS: ALT (GPT) 47 IU/L (3-49)
[2017-06-28] MEDS ORDERED: LASIX40 MG PO (19:09)
[2017-06-28] MEDS ORDERED: ERYTHROMYC1 APPLICAT BOTH EYES (19:10)
[2017-06-28] MEDS ORDERED: SYSTANE 0.3-0.1 EACH BOTH EYES (19:10)
[2017-06-28 19:14] LABS: POTASSIUM 4.9 mEq/L (3.7-5.4)
[2017-06-28 23:08] VITALS: BP 128/68
[2017-06-29 04:32] VITALS: BP 128/67
[2017-06-29 06:41] LABS: HEMATOCRIT 26.5 % (38.0-50.0); HEMOGLOBIN 8.8 G/DL (12.5-16.6); MCH 39.6 PG (29.0-34.0); MCHC 33.2 G/DL (30.0-36.0); MCV 119.4 FL (86-99); PLATELET COUNT 140 K/uL (156-360); RBC DIS.WIDTH-SD 84.1 % (39-53); RED BLOOD COUNT 2.22 M/uL (4.00-5.50); WHITE BLOOD COUNT 4.2 K/uL (4.1-10.2)
[2017-06-29 07:02] LABS: CHLORIDE 96 MEQ/L (99-109); CREATININE 0.9 MG/DL (0.6-1.3); GFR ESTIMATE (CALCULATED) > 59 mL/min/ (58.99-99999); GLUCOSE 109 mg/dL (70-99); POTASSIUM 4.5 MEQ/L (3.7-5.4); SODIUM 127 MEQ/L (136-147); UREA NITROGEN (BUN) 19 mg/dL (9-23)
[2017-06-29 07:50] VITALS: BP 130/71
[2017-06-29 11:13] VITALS: BP 114/58
[2017-06-29 17:25] VITALS: BP 109/64
[2017-06-29 20:05] VITALS: BP 124/73
[2017-06-30 00:05] VITALS: BP 94/51
[2017-06-30 07:32] VITALS: BP 103/55
[2017-06-30 08:31] LABS: HEMATOCRIT 26.1 % (38.0-50.0); HEMOGLOBIN 8.8 G/DL (12.5-16.6); MCH 40.4 PG (29.0-34.0); MCHC 33.7 G/DL (30.0-36.0); MCV 119.7 FL (86-99); PLATELET COUNT 127 K/uL (156-360); RBC DIS.WIDTH-CV 18.9 % (11.8-14.6); RBC DIS.WIDTH-SD 83.9 % (39-53); RED BLOOD COUNT 2.18 M/uL (4.00-5.50); WHITE BLOOD COUNT 3.9 K/uL (4.1-10.2)
[2017-06-30 09:25] LABS: CHLORIDE 98 MEQ/L (99-109); CREATININE 0.8 MG/DL (0.6-1.3); GFR ESTIMATE (CALCULATED) > 59 mL/min/ (58.99-99999); GLUCOSE 90 mg/dL (70-99); POTASSIUM 4.3 MEQ/L (3.7-5.4); SODIUM 130 MEQ/L (136-147); UREA NITROGEN (BUN) 17 mg/dL (9-23)
[2017-06-30 13:18] VITALS: BP 101/60
[2017-06-30 16:23] VITALS: BP 96/52
[2017-06-30 19:25] VITALS: BP 94/55
[2017-06-30 23:03] VITALS: BP 87/53
[2017-07-01 00:15] VITALS: BP 94/52
[2017-07-01 05:10] VITALS: BP 94/61
[2017-07-01 05:54] LABS: HEMOGLOBIN 9.4 G/DL (12.5-16.6); MCHC 33.6 G/DL (30.0-36.0); MCV 119.1 FL (86-99); PLATELET COUNT 110 K/uL (156-360); RBC DIS.WIDTH-CV 18.5 % (11.8-14.6); RBC DIS.WIDTH-SD 81.4 % (39-53); RED BLOOD COUNT 2.35 M/uL (4.00-5.50); WHITE BLOOD COUNT 4.8 K/uL (4.1-10.2)
[2017-07-01 06:29] LABS: CHLORIDE 96 MEQ/L (99-109); POTASSIUM 4.2 MEQ/L (3.7-5.4); SODIUM 127 MEQ/L (136-147)
[2017-07-01 06:35] LABS: CREATININE 0.7 MG/DL (0.6-1.3); GFR ESTIMATE (CALCULATED) > 59 mL/min/ (58.99-99999); GLUCOSE 95 mg/dL (70-99); UREA NITROGEN (BUN) 15 mg/dL (9-23)
[2017-07-01 07:32] VITALS: BP 101/55
[2017-07-01] MEDS ORDERED: KEFLEX500 MG PO (08:36)
[2017-07-01 11:13] VITALS: BP 115/62
== END 2017-07-01 12:56 | disposition home health service (06) | DRG 948 ==
LOC: EME 14:57 → EDOF 20:32 → ENRESERV 20:33 → 5EAST 22:20
PROVIDERS: Hospitalist; Internal Medicine; Nurse Practitioner Family
DX: R60.1 Generalized edema (principal); I89.0 Lymphedema, not elsewhere classified; E87.1 Hypo-osmolality and hyponatremia; E88.09 Other disorders of plasma-protein metabolism, not elsewhere classified; E87.5 Hyperkalemia; S80.822A Blister (nonthermal), left lower leg, initial encounter; W49.09XA Other specified item causing external constriction, initial encounter; L01.00 Impetigo, unspecified; E83.110 Hereditary hemochromatosis; D53.9 Nutritional anemia, unspecified; K62.5 Hemorrhage of anus and rectum; E66.01 Morbid (severe) obesity due to excess calories; Z68.43 Body mass index [BMI] 50.0-59.9, adult; D69.6 Thrombocytopenia, unspecified; K72.10 Chronic hepatic failure without coma; I10 Essential (primary) hypertension; I87.2 Venous insufficiency (chronic) (peripheral); E03.9 Hypothyroidism, unspecified; G47.30 Sleep apnea, unspecified; B37.2 Candidiasis of skin and nail; R79.89 Other specified abnormal findings of blood chemistry; N40.1 Benign prostatic hyperplasia with lower urinary tract symptoms; R35.0 Frequency of micturition; T50.1X5A Adverse effect of loop [high-ceiling] diuretics, initial encounter; K64.9 Unspecified hemorrhoids; M40.204 Unspecified kyphosis, thoracic region; G89.29 Other chronic pain; M54.9 Dorsalgia, unspecified; I87.8 Other specified disorders of veins; Z85.05 Personal history of malignant neoplasm of liver; Z85.820 Personal history of malignant melanoma of skin; Z92.21 Personal history of antineoplastic chemotherapy; Z80.8 Family history of malignant neoplasm of other organs or systems; Z82.3 Family history of stroke
CPT/HCPCS: 71046; 80048; 80076; 81003; 82436; 82607; 82746; 83605; 84133; 84300; 84443; 84999; 85025; 85027; 85610; 85730; 87040; 87070; 87075; 87205; 93970; 99281; 99285; J0690; J1644; J2270; J2543

== ENCOUNTER 2017-07-13 00:39 | Emergency (ER) | payer OTHER ==
[~2017-07-13] VITALS: Ht 177.8 cm; Wt 147.8 kg
[~2017-07-13 00:39] MED LIST changes: +SYSTANE 0.3-0.1 EACH BOTH EYES
[2017-07-13 01:42] LABS: HEMATOCRIT 25.4 % (38.0-50.0); HEMOGLOBIN 9.2 G/DL (12.5-16.6); MCH 41.4 PG (29.0-34.0); MCHC 36.2 G/DL (30.0-36.0); RBC DIS.WIDTH-SD 66.3 % (39-53); RED BLOOD COUNT 2.22 M/uL (4.00-5.50)
[2017-07-13 01:43] LABS: MCV 114.4 FL (86-99); PLATELET COUNT 151 K/uL (156-360)
[2017-07-13 01:43] LABS: APPEARANCE CLEAR ((CLEAR)); BILIRUBIN NEGATIVE; BLOOD NEGATIVE; COLOR YELLOW ((YELLOW)); GLUCOSE (STRIP) NEGATIVE; KETONES NEGATIVE; LEUKOCYTES NEGATIVE; NITRITE NEGATIVE; PROTEIN (STRIP) NEGATIVE; SPECIFIC GRAVITY 1.011 (1.000-1.030); UCUL ADDED? NO
[2017-07-13 01:49] LABS: CHLORIDE 95 mEq/L (99-109); POTASSIUM 4.9 mEq/L (3.7-5.4); SODIUM 124 mEq/L (136-147)
[2017-07-13 01:51] LABS: GLUCOSE 83 mg/dL (70-99)
[2017-07-13 01:55] LABS: CREATININE 1.1 mg/dL (0.6-1.3); GFR ESTIMATE (CALCULATED) > 59 mL/min/ (58.99-99999); UREA NITROGEN (BUN) 30 mg/dL (9-23)
[2017-07-13 04:00] VITALS: BP 96/42
== END 2017-07-13 04:02 | disposition home or self-care (01) ==
LOC: EME → EDBD 00:39 → EME 04:02
PROVIDERS: Physician Assistant
DX: S51.811A Laceration without foreign body of right forearm, initial encounter (principal); S51.812A Laceration without foreign body of left forearm, initial encounter; E87.1 Hypo-osmolality and hyponatremia; W01.0XXA Fall on same level from slipping, tripping and stumbling without subsequent striking against object, initial encounter; Y93.01 Activity, walking, marching and hiking; I10 Essential (primary) hypertension; E03.9 Hypothyroidism, unspecified; Z79.891 Long term (current) use of opiate analgesic; Z85.05 Personal history of malignant neoplasm of liver; Z92.21 Personal history of antineoplastic chemotherapy; J30.2 Other seasonal allergic rhinitis
CPT/HCPCS: 80048; 81003; 85027; 99281; 99284

== ENCOUNTER 2017-07-26 20:37 | Inpatient (IN) | payer OTHER ==
[~2017-07-26] VITALS: Ht 177.8 cm; Wt 145.3 kg
[2017-07-26 21:44] LABS: HEMATOCRIT 28.1 % (38.0-50.0); HEMOGLOBIN 9.8 G/DL (12.5-16.6); MCH 41.9 PG (29.0-34.0); MCHC 34.9 G/DL (30.0-36.0); MCV 120.1 FL (86-99); PLATELET COUNT 129 K/uL (156-360); RBC DIS.WIDTH-CV 17.2 % (11.8-14.6); RBC DIS.WIDTH-SD 76.3 % (39-53); RED BLOOD COUNT 2.34 M/uL (4.00-5.50); WHITE BLOOD COUNT 5.7 K/uL (4.1-10.2)
[2017-07-26 21:48] LABS: INTER. NORMALIZED RATIO 1.4
[2017-07-26 21:51] LABS: PTT 37.3 SEC (25-37)
[2017-07-26 21:59] LABS: ALBUMIN 2.4 g/dL (3.2-4.8); CHLORIDE 96 mEq/L (99-109); POTASSIUM 5.3 mEq/L (3.7-5.4); SODIUM 129 mEq/L (136-147)
[2017-07-26 22:02] LABS: GLUCOSE 105 mg/dL (70-99); TOTAL PROTEIN 5.7 g/dL (6.4-8.3)
[2017-07-26 22:03] LABS: TOTAL BILIRUBIN 8.8 mg/dL (0.0-1.0)
[2017-07-26 22:04] LABS: TROP-I INTERPRETATION NEGATIVE; TROPONIN-I < 0.01 ng/mL (0.0-0.30)
[2017-07-26 22:05] LABS: ALKALINE PHOSPHATASE 338 IU/L (3-129); CREATININE 0.9 mg/dL (0.6-1.3); GFR ESTIMATE (CALCULATED) > 59 mL/min/ (58.99-99999)
[2017-07-26 22:06] LABS: UREA NITROGEN (BUN) 27 mg/dL (9-23)
[2017-07-26 22:07] LABS: AST (GOT) 73 IU/L (2-34)
[2017-07-26 22:08] LABS: ALT (GPT) 37 IU/L (3-49)
[2017-07-26 22:09] LABS: LIPASE 36 U/L (1.0-51.0)
[2017-07-26 22:15] LABS: APPEARANCE SL.HAZY ((CLEAR)); BILIRUBIN SMALL; BLOOD NEGATIVE; COLOR AMBER ((YELLOW)); GLUCOSE (STRIP) NEGATIVE; KETONES NEGATIVE; LEUKOCYTES MODERATE; NITRITE NEGATIVE; PROTEIN (STRIP) 30; SPECIFIC GRAVITY 1.031 (1.000-1.030)
[2017-07-26 22:27] LABS: BACTERIA RARE /HPF; EPITHELIAL CELLS RARE /HPF; MUCUS 1+ /LPF; UCUL ADDED? YES
[2017-07-27 04:44] VITALS: BP 126/59
[2017-07-27 08:13] VITALS: BP 108/53
[2017-07-27 11:36] VITALS: BP 117/66
[2017-07-27 16:23] VITALS: BP 112/57
[2017-07-27 19:06] VITALS: BP 108/60
[2017-07-28 00:05] VITALS: BP 112/59
[2017-07-28 04:44] VITALS: BP 116/58
[2017-07-28 05:53] LABS: HEMATOCRIT 26.1 % (38.0-50.0); HEMOGLOBIN 9.1 G/DL (12.5-16.6); MCH 42.3 PG (29.0-34.0); MCHC 34.9 G/DL (30.0-36.0); MCV 121.4 FL (86-99); PLATELET COUNT 128 K/uL (156-360); RBC DIS.WIDTH-CV 17.6 % (11.8-14.6); RBC DIS.WIDTH-SD 78.3 % (39-53); RED BLOOD COUNT 2.15 M/uL (4.00-5.50); WHITE BLOOD COUNT 4.8 K/uL (4.1-10.2)
[2017-07-28 06:22] LABS: ALBUMIN 2.3 G/DL (3.2-4.8); ALKALINE PHOSPHATASE 288 IU/L (3-129); ALT (GPT) 24 IU/L (3-49); AST (GOT) 63 IU/L (2-34); CHLORIDE 93 MEQ/L (99-109); CREATININE 0.8 MG/DL (0.6-1.3); DIRECT BILIRUBIN 3.8 mg/dL (0.0-0.3); GFR ESTIMATE (CALCULATED) > 59 mL/min/ (58.99-99999); GLUCOSE 93 mg/dL (70-99); POTASSIUM 4.3 MEQ/L (3.7-5.4); SODIUM 124 MEQ/L (136-147); TOTAL PROTEIN 5.1 G/DL (6.4-8.3); UREA NITROGEN (BUN) 23 mg/dL (9-23)
[2017-07-28 08:17] VITALS: BP 134/64
[2017-07-28 12:28] VITALS: BP 147/63
[2017-07-28 14:39] LABS: CHLORIDE 95 MEQ/L (99-109); CREATININE 0.8 MG/DL (0.6-1.3); GFR ESTIMATE (CALCULATED) > 59 mL/min/ (58.99-99999); GLUCOSE 111 mg/dL (70-99); POTASSIUM 4.7 MEQ/L (3.7-5.4); SODIUM 124 MEQ/L (136-147); UREA NITROGEN (BUN) 23 mg/dL (9-23)
[2017-07-28 16:30] VITALS: BP 107/59
[2017-07-28 23:43] VITALS: BP 111/59
[2017-07-29 06:36] LABS: CHLORIDE 93 MEQ/L (99-109); CREATININE 0.8 MG/DL (0.6-1.3); GFR ESTIMATE (CALCULATED) > 59 mL/min/ (58.99-99999); GLUCOSE 87 mg/dL (70-99); POTASSIUM 4.7 MEQ/L (3.7-5.4); SODIUM 129 MEQ/L (136-147); UREA NITROGEN (BUN) 23 mg/dL (9-23)
[2017-07-29 08:10] VITALS: BP 107/71
[2017-07-29 16:52] VITALS: BP 130/65
[2017-07-30 01:11] VITALS: BP 123/67
[2017-07-30 04:45] VITALS: BP 126/77
[2017-07-30 06:07] LABS: ALBUMIN 2.2 G/DL (3.2-4.8); ALKALINE PHOSPHATASE 306 IU/L (3-129); ALT (GPT) 26 IU/L (3-49); AST (GOT) 90 IU/L (2-34); CHLORIDE 96 MEQ/L (99-109); CREATININE 0.8 MG/DL (0.6-1.3); GFR ESTIMATE (CALCULATED) > 59 mL/min/ (58.99-99999); GLUCOSE 89 mg/dL (70-99); POTASSIUM 5.2 MEQ/L (3.7-5.4); SODIUM 126 MEQ/L (136-147); TOTAL BILIRUBIN 8.2 MG/DL (0.0-1.0); UREA NITROGEN (BUN) 24 mg/dL (9-23)
[2017-07-30 07:10] LABS: RED BLOOD COUNT ND M/uL (4.00-5.50); WHITE BLOOD COUNT ND K/uL (4.1-10.2)
[2017-07-30 07:11] LABS: HEMOGLOBIN ND G/DL (12.5-16.6)
[2017-07-30 07:12] LABS: HEMATOCRIT ND % (38.0-50.0); MCH ND PG (29.0-34.0); MCHC ND G/DL (30.0-36.0); MCV ND FL (86-99); RBC DIS.WIDTH-CV ND % (11.8-14.6); RBC DIS.WIDTH-SD ND % (39-53)
[2017-07-30 07:13] LABS: BASOPHIL (%) ND % (0-1); EOSINOPHIL (%) ND % (0-5); IMMATURE GRANULOCYTE (%) ND % (0.0-0.7); LYMPHOCYTE (%) ND % (15-42); LYMPHOCYTE COUNT ND K/uL (1.0-2.8); MONOCYTE (%) ND % (3-12); NEUTROPHIL (%) ND % (45-76)
[2017-07-30 07:14] LABS: BASOPHIL COUNT ND K/uL (0-0.1); EOSINOPHIL COUNT ND K/uL (0-0.3); MONOCYTE COUNT ND K/uL (0-0.8); NEUTROPHIL COUNT ND K/uL (1.8-6.4); NRBC (%) ND /100 WBC (0-0)
[2017-07-30 08:16] LABS: BASOPHIL (%) 0.5 % (0-1); EOSINOPHIL (%) 4.7 % (0-5); EOSINOPHIL COUNT 0.2 K/uL (0-0.3); HEMATOCRIT 27.6 % (38.0-50.0); HEMOGLOBIN 9.5 G/DL (12.5-16.6); IMMATURE GRANULOCYTE (%) 1.5 % (0.0-0.7); LYMPHOCYTE (%) 17.8 % (15-42); LYMPHOCYTE COUNT 0.7 K/uL (1.0-2.8); MCHC 34.4 G/DL (30.0-36.0); MCV 122.1 FL (86-99); MONOCYTE (%) 20.3 % (3-12); MONOCYTE COUNT 0.8 K/uL (0-0.8); NEUTROPHIL (%) 55.2 % (45-76); NEUTROPHIL COUNT 2.2 K/uL (1.8-6.4); NRBC (%) 0.5 /100 WBC (0-0); PLATELET COUNT 140 K/uL (156-360); RBC DIS.WIDTH-SD 81.6 % (39-53); RED BLOOD COUNT 2.26 M/uL (4.00-5.50)
[2017-07-30 08:26] VITALS: BP 129/62
[2017-07-30 11:13] VITALS: BP 127/57
[2017-07-30 16:30] VITALS: BP 135/62
[2017-07-30 20:00] VITALS: BP 115/55
[2017-07-31] VITALS: BP 126/63
[2017-07-31 03:57] VITALS: BP 120/66
[2017-07-31 06:03] LABS: CHLORIDE 97 MEQ/L (99-109); CREATININE 0.8 MG/DL (0.6-1.3); GFR ESTIMATE (CALCULATED) > 59 mL/min/ (58.99-99999); GLUCOSE 95 mg/dL (70-99); POTASSIUM 5.1 MEQ/L (3.7-5.4); SODIUM 130 MEQ/L (136-147); UREA NITROGEN (BUN) 25 mg/dL (9-23)
[2017-07-31 09:30] VITALS: BP 121/66
[2017-07-31] MEDS ORDERED: FUROSEMIDE40 MG PO (12:25)
[2017-07-31] MEDS ORDERED: CEPHALEXIN500 MG PO (12:32)
[2017-07-31 13:28] VITALS: BP 121/59
== END 2017-07-31 14:44 | disposition home health service (06) | DRG 603 ==
LOC: EME → EDBD 20:37 → 3EAST 07-27 02:06 → EDOF 07-27 02:06 → ENRESERV 07-27 02:11 → 3EAST 07-27 04:00
PROVIDERS: Emergency Medicine; Family Medicine; Hospitalist; Internal Medicine Nephrology; Student in an Organized Health Care Education/Training Program
DX: L03.115 Cellulitis of right lower limb (principal); L03.116 Cellulitis of left lower limb; N39.0 Urinary tract infection, site not specified; K72.10 Chronic hepatic failure without coma; E83.110 Hereditary hemochromatosis; I87.8 Other specified disorders of veins; L97.921 Non-pressure chronic ulcer of unspecified part of left lower leg limited to breakdown of skin; L97.911 Non-pressure chronic ulcer of unspecified part of right lower leg limited to breakdown of skin; S31.104A Unspecified open wound of abdominal wall, left lower quadrant without penetration into peritoneal cavity, initial encounter; E53.9 Vitamin B deficiency, unspecified; E66.01 Morbid (severe) obesity due to excess calories; Z68.42 Body mass index [BMI] 45.0-49.9, adult; E86.0 Dehydration; E87.1 Hypo-osmolality and hyponatremia; I87.2 Venous insufficiency (chronic) (peripheral); I89.0 Lymphedema, not elsewhere classified; D69.59 Other secondary thrombocytopenia; K75.81 Nonalcoholic steatohepatitis (NASH); I95.9 Hypotension, unspecified; R18.8 Other ascites; G47.33 Obstructive sleep apnea (adult) (pediatric); D64.9 Anemia, unspecified; I10 Essential (primary) hypertension; M54.9 Dorsalgia, unspecified; M79.606 Pain in leg, unspecified; R06.02 Shortness of breath; E03.9 Hypothyroidism, unspecified; K59.00 Constipation, unspecified; N40.1 Benign prostatic hyperplasia with lower urinary tract symptoms; R35.0 Frequency of micturition; Z80.8 Family history of malignant neoplasm of other organs or systems; Z82.3 Family history of stroke; Z85.05 Personal history of malignant neoplasm of liver; Z85.820 Personal history of malignant melanoma of skin; Z92.21 Personal history of antineoplastic chemotherapy
CPT/HCPCS: 71045; 80048; 80048 91; 80053; 81003; 82140; 82248; 83605; 83690; 83880; 83935; 84300; 84484; 85025; 85025 91; 85027; 85610; 85730; 87040; 87086; 93005; 99281; 99285; A6212; J0690; J1644; J7030; P9047

== ENCOUNTER 2017-08-18 12:01 | Emergency (ER) | payer OTHER ==
[~2017-08-18] VITALS: Ht 177.8 cm; Wt 140.2 kg
[~2017-08-18 12:01] MED LIST changes: +CEPHALEXIN500 MG PO
[2017-08-18 12:23] VITALS: BP 102/64
[2017-08-18] MEDS ORDERED: DILAUDID2 MG PO (14:56)
[2017-08-19] MEDS ORDERED: ALDACTONE100 MG PO (15:45)
[2017-08-19] MEDS ORDERED: LASIX40 MG PO (15:46)
[2017-08-19] MEDS ORDERED: HYDROMORPHONE HC2 MG PO (15:49)
[2017-08-19] MEDS ORDERED: ONDANSETRON ODT4 MG PO (15:50)
== END 2017-08-18 16:07 | disposition home or self-care (01) ==
LOC: EME 12:01
DX: I87.2 Venous insufficiency (chronic) (peripheral) (principal); M25.572 Pain in left ankle and joints of left foot; I10 Essential (primary) hypertension; E03.9 Hypothyroidism, unspecified; E66.01 Morbid (severe) obesity due to excess calories; Z79.891 Long term (current) use of opiate analgesic; Z87.2 Personal history of diseases of the skin and subcutaneous tissue; Z85.05 Personal history of malignant neoplasm of liver; Z92.21 Personal history of antineoplastic chemotherapy
CPT/HCPCS: 73610; 99281; 99285

== ENCOUNTER 2017-08-19 06:57 | Inpatient (IN) | payer OTHER ==
[~2017-08-19] VITALS: Ht 177.8 cm; Wt 144.8 kg
[~2017-08-19 06:57] MED LIST changes: +DILAUDID2 MG PO
[2017-08-19 07:52] LABS: HEMATOCRIT 30.9 % (38.0-50.0); HEMOGLOBIN 10.7 G/DL (12.5-16.6); MCH 42.3 PG (29.0-34.0); MCHC 34.6 G/DL (30.0-36.0); NRBC (%) 0.1 /100 WBC (0-0); RBC DIS.WIDTH-CV 17.5 % (11.8-14.6); RED BLOOD COUNT 2.53 M/uL (4.00-5.50); WHITE BLOOD COUNT 13.7 K/uL (4.1-10.2)
[2017-08-19 07:55] LABS: MCV 122.1 FL (86-99)
[2017-08-19 08:34] LABS: CHLORIDE 96 MEQ/L (99-109); GFR ESTIMATE (CALCULATED) > 59 mL/min/ (58.99-99999); GLUCOSE 68 mg/dL (70-99); POTASSIUM 6.6 MEQ/L (3.7-5.4); SODIUM 127 MEQ/L (136-147); UREA NITROGEN (BUN) 37 mg/dL (9-23)
[2017-08-19 08:39] LABS: ABS NEUTROPHIL COUNT 13.1; ANISOCYTOSIS 3+; BAND NEUTROPHILS 19.1 % (0-8.0); BURR CELLS 2+; EOSINOPHIL ABS CT 0; LYMPHOCYTES 1.8 % (15.0-45.0); MACROCYTES 3+; MONOCYTES 2.6 % (0-9.0); PLAT.SUFFICIENCY DECREASED; PLATELET COUNT 104 K/uL (156-360); POIKILOCYTOSIS 3+; POLYCHROMASIA 1+; SEG.NEUTROPHILS 76.5 % (46.0-76.0)
[2017-08-19 09:56] LABS: CHLORIDE 96 MEQ/L (99-109); GFR ESTIMATE (CALCULATED) > 59 mL/min/ (58.99-99999); GLUCOSE 64 mg/dL (70-99); POTASSIUM 5.8 MEQ/L (3.7-5.4); SODIUM 130 MEQ/L (136-147); UREA NITROGEN (BUN) 35 mg/dL (9-23)
[2017-08-19 15:20] LABS: ALBUMIN 2.4 G/DL (3.2-4.8); ALKALINE PHOSPHATASE 392 IU/L (3-129); ALT (GPT) 39 IU/L (3-49); AST (GOT) 74 IU/L (2-34); TOTAL BILIRUBIN 10.3 MG/DL (0.0-1.0); TOTAL PROTEIN 5.9 G/DL (6.4-8.3)
[2017-08-19] MEDS ORDERED: ALDACTONE100 MG PO (15:45)
[2017-08-19] MEDS ORDERED: LASIX40 MG PO (15:46)
[2017-08-19] MEDS ORDERED: HYDROMORPHONE HC2 MG PO (15:49)
[2017-08-19] MEDS ORDERED: ONDANSETRON ODT4 MG PO (15:50)
[2017-08-19 17:10] VITALS: BP 128/55
[2017-08-19 17:13] LABS: APPEARANCE CLEAR ((CLEAR)); BILIRUBIN SMALL; BLOOD NEGATIVE; COLOR AMBER ((YELLOW)); GLUCOSE (STRIP) NEGATIVE; KETONES NEGATIVE; LEUKOCYTES NEGATIVE; NITRITE NEGATIVE; PROTEIN (STRIP) 30; SPECIFIC GRAVITY 1.027 (1.000-1.030)
[2017-08-19 19:28] VITALS: BP 109/55
[2017-08-19 20:36] LABS: CHLORIDE 99 MEQ/L (99-109); CREATININE 0.9 MG/DL (0.6-1.3); GFR ESTIMATE (CALCULATED) > 59 mL/min/ (58.99-99999); GLUCOSE 63 mg/dL (70-99); POTASSIUM 5.4 MEQ/L (3.7-5.4); SODIUM 128 MEQ/L (136-147); UREA NITROGEN (BUN) 35 mg/dL (9-23)
[2017-08-20] VITALS (7 sets, daily range): BP systolic 94–130; BP diastolic 53–80
[2017-08-20 05:35] LABS: HEMATOCRIT 26.9 % (38.0-50.0); HEMOGLOBIN 8.9 G/DL (12.5-16.6); MCH 41.4 PG (29.0-34.0); MCHC 33.1 G/DL (30.0-36.0); MCV 125.1 FL (86-99); NRBC (%) 0.1 /100 WBC (0-0); RBC DIS.WIDTH-CV 18.1 % (11.8-14.6); RBC DIS.WIDTH-SD 84.2 % (39-53); RED BLOOD COUNT 2.15 M/uL (4.00-5.50); WHITE BLOOD COUNT 18.5 K/uL (4.1-10.2)
[2017-08-20 05:41] LABS: PLATELET COUNT 159 K/uL (156-360)
[2017-08-20 06:05] LABS: ALBUMIN 1.8 G/DL (3.2-4.8); ALT (GPT) 31 IU/L (3-49); AST (GOT) 60 IU/L (2-34); CHLORIDE 96 MEQ/L (99-109); GFR ESTIMATE (CALCULATED) > 59 mL/min/ (58.99-99999); GLUCOSE 73 mg/dL (70-99); SODIUM 127 MEQ/L (136-147); TOTAL BILIRUBIN 9.4 MG/DL (0.0-1.0); UREA NITROGEN (BUN) 35 mg/dL (9-23)
[2017-08-20 06:09] LABS: ALKALINE PHOSPHATASE 255 IU/L (3-129); TOTAL PROTEIN 4.6 G/DL (6.4-8.3)
[2017-08-21 04:13] VITALS: BP 102/55
[2017-08-21 05:36] LABS: HEMATOCRIT 26.5 % (38.0-50.0); HEMOGLOBIN 9.1 G/DL (12.5-16.6); MCH 42.1 PG (29.0-34.0); MCHC 34.3 G/DL (30.0-36.0); MCV 122.7 FL (86-99); NRBC (%) 0.1 /100 WBC (0-0); PLATELET COUNT 156 K/uL (156-360); RBC DIS.WIDTH-CV 17.5 % (11.8-14.6); RBC DIS.WIDTH-SD 80.5 % (39-53); RED BLOOD COUNT 2.16 M/uL (4.00-5.50); WHITE BLOOD COUNT 22.3 K/uL (4.1-10.2)
[2017-08-21 05:58] LABS: ALBUMIN 1.9 G/DL (3.2-4.8); ALKALINE PHOSPHATASE 277 IU/L (3-129); ALT (GPT) 23 IU/L (3-49); AST (GOT) 58 IU/L (2-34); CHLORIDE 97 MEQ/L (99-109); GFR ESTIMATE (CALCULATED) > 59 mL/min/ (58.99-99999); POTASSIUM 4.1 MEQ/L (3.7-5.4); SODIUM 129 MEQ/L (136-147); TOTAL BILIRUBIN 8.4 MG/DL (0.0-1.0); TOTAL PROTEIN 4.9 G/DL (6.4-8.3); UREA NITROGEN (BUN) 42 mg/dL (9-23)
[2017-08-21 06:05] LABS: GLUCOSE 109 mg/dL (70-99)
[2017-08-21 06:18] LABS: ABS NEUTROPHIL COUNT 20.6; ANISOCYTOSIS 3+; BAND NEUTROPHILS 2.6 % (0-8.0); EOSINOPHIL ABS CT 0.3; EOSINOPHILS 1.3 % (0-5.0); LYMPHOCYTES 1.7 % (15.0-45.0); MACROCYTES 3+; METAMYELOCYTES 0.4 %; MONOCYTES 4.4 % (0-9.0); PLAT.SUFFICIENCY ADEQUATE; SEG.NEUTROPHILS 89.6 % (46.0-76.0); TOX.VACUOLIZATION 1+; TOXIC GRANULATION 2+
[2017-08-21 07:40] VITALS: BP 118/65
[2017-08-21 11:10] VITALS: BP 118/65
[2017-08-21 16:00] VITALS: BP 114/59
[2017-08-21 20:32] VITALS: BP 108/62
[2017-08-22] VITALS (7 sets, daily range): BP systolic 103–164; BP diastolic 54–82
[2017-08-22 06:00] LABS: HEMATOCRIT 28.3 % (38.0-50.0); HEMOGLOBIN 9.7 G/DL (12.5-16.6); MCH 41.8 PG (29.0-34.0); MCHC 34.3 G/DL (30.0-36.0); NRBC (%) 0.2 /100 WBC (0-0); PLATELET COUNT 116 K/uL (156-360); RBC DIS.WIDTH-CV 17.2 % (11.8-14.6); RBC DIS.WIDTH-SD 78.1 % (39-53); RED BLOOD COUNT 2.32 M/uL (4.00-5.50); WHITE BLOOD COUNT 18.3 K/uL (4.1-10.2)
[2017-08-22 06:26] LABS: ALBUMIN 1.7 G/DL (3.2-4.8); ALT (GPT) 17 IU/L (3-49); AST (GOT) 84 IU/L (2-34); CHLORIDE 100 MEQ/L (99-109); CREATININE 0.8 MG/DL (0.6-1.3); GFR ESTIMATE (CALCULATED) > 59 mL/min/ (58.99-99999); GLUCOSE 125 mg/dL (70-99); POTASSIUM 4.3 MEQ/L (3.7-5.4); SODIUM 130 MEQ/L (136-147); TOTAL BILIRUBIN 7.2 MG/DL (0.0-1.0); TOTAL PROTEIN 4.8 G/DL (6.4-8.3); UREA NITROGEN (BUN) 42 mg/dL (9-23)
[2017-08-22 06:27] LABS: ALKALINE PHOSPHATASE 370 IU/L (3-129)
[2017-08-22 07:06] LABS: BASOPHIL (%) 0.2 % (0-1); EOSINOPHIL (%) 0.9 % (0-5); EOSINOPHIL COUNT 0.2 K/uL (0-0.3); IMMATURE GRANULOCYTE (%) 1.4 % (0.0-0.7); LYMPHOCYTE (%) 3.1 % (15-42); LYMPHOCYTE COUNT 0.6 K/uL (1.0-2.8); MONOCYTE (%) 11.1 % (3-12); NEUTROPHIL (%) 83.3 % (45-76); NEUTROPHIL COUNT 15.3 K/uL (1.8-6.4)
[2017-08-23 03:42] VITALS: BP 115/53
[2017-08-23 08:03] VITALS: BP 116/58
[2017-08-23 08:10] LABS: HEMATOCRIT 27.2 % (38.0-50.0); HEMOGLOBIN 9.3 G/DL (12.5-16.6); MCHC 34.2 G/DL (30.0-36.0); MCV 119.8 FL (86-99); NRBC (%) 0.1 /100 WBC (0-0); PLATELET COUNT 109 K/uL (156-360); RBC DIS.WIDTH-CV 17.2 % (11.8-14.6); RBC DIS.WIDTH-SD 76.3 % (39-53); RED BLOOD COUNT 2.27 M/uL (4.00-5.50); WHITE BLOOD COUNT 18.5 K/uL (4.1-10.2)
[2017-08-23 08:50] LABS: CHLORIDE 98 MEQ/L (99-109); POTASSIUM 4.9 MEQ/L (3.7-5.4); SODIUM 129 MEQ/L (136-147)
[2017-08-23 08:56] LABS: CREATININE 0.8 MG/DL (0.6-1.3); GFR ESTIMATE (CALCULATED) > 59 mL/min/ (58.99-99999); GLUCOSE 111 mg/dL (70-99); UREA NITROGEN (BUN) 48 mg/dL (9-23)
[2017-08-23 12:22] VITALS: BP 108/61
[2017-08-23 16:11] VITALS: BP 110/63
[2017-08-23 20:00] VITALS: BP 150/57
[2017-08-23 23:58] VITALS: BP 112/71
[2017-08-24 04:34] VITALS: BP 119/65
[2017-08-24 09:28] VITALS: BP 107/56
[2017-08-24 11:15] VITALS: BP 110/64
[2017-08-24 16:17] VITALS: BP 99/68
[2017-08-24 19:46] VITALS: BP 111/53
[2017-08-24 23:26] VITALS: BP 119/70
[2017-08-25 05:03] VITALS: BP 118/62
[2017-08-25 06:41] LABS: ALBUMIN 1.8 G/DL (3.2-4.8); ALT (GPT) 31 IU/L (3-49); CHLORIDE 99 MEQ/L (99-109); CREATININE 0.8 MG/DL (0.6-1.3); GFR ESTIMATE (CALCULATED) > 59 mL/min/ (58.99-99999); GLUCOSE 104 mg/dL (70-99); POTASSIUM 5.4 MEQ/L (3.7-5.4); SODIUM 128 MEQ/L (136-147); TOTAL BILIRUBIN 8.6 MG/DL (0.0-1.0); UREA NITROGEN (BUN) 49 mg/dL (9-23)
[2017-08-25 06:44] LABS: ALKALINE PHOSPHATASE 582 IU/L (3-129); AST (GOT) 169 IU/L (2-34)
[2017-08-25 08:07] LABS: HEMATOCRIT 28.5 % (38.0-50.0); HEMOGLOBIN 9.6 G/DL (12.5-16.6); MCH 40.9 PG (29.0-34.0); MCHC 33.7 G/DL (30.0-36.0); MCV 121.3 FL (86-99); NRBC (%) 0.2 /100 WBC (0-0); PLATELET COUNT 135 K/uL (156-360); RBC DIS.WIDTH-CV 17.2 % (11.8-14.6); RED BLOOD COUNT 2.35 M/uL (4.00-5.50); WHITE BLOOD COUNT 12.6 K/uL (4.1-10.2)
[2017-08-25 08:54] LABS: ABS NEUTROPHIL COUNT 10.2; ANISOCYTOSIS 3+; BAND NEUTROPHILS 1.7 % (0-8.0); BASOPHILS 1.7 %; EOSINOPHIL ABS CT 0.4; EOSINOPHILS 3.5 % (0-5.0); LYMPHOCYTES 3.5 % (15.0-45.0); MACROCYTES 3+; METAMYELOCYTES 5.2 %; MONOCYTES 5.2 % (0-9.0); NUCLEATED RBC'S 0.9; PLAT.SUFFICIENCY DECREASED; POLYCHROMASIA 1+; SEG.NEUTROPHILS 79.2 % (46.0-76.0); SMUDGE CELLS 0.9
[2017-08-25 10:57] VITALS: BP 111/55
[2017-08-25 16:06] VITALS: BP 114/68
[2017-08-25 19:37] VITALS: BP 153/71
[2017-08-25 23:41] VITALS: BP 114/64
[2017-08-26 08:22] VITALS: BP 133/70
[2017-08-26 10:22] LABS: HEMATOCRIT 29.7 % (38.0-50.0); HEMOGLOBIN 9.8 G/DL (12.5-16.6); MCH 40.5 PG (29.0-34.0); MCV 122.7 FL (86-99); NRBC (%) 0.3 /100 WBC (0-0); RBC DIS.WIDTH-CV 17.2 % (11.8-14.6); RBC DIS.WIDTH-SD 78.3 % (39-53); RED BLOOD COUNT 2.42 M/uL (4.00-5.50); WHITE BLOOD COUNT 11.1 K/uL (4.1-10.2)
[2017-08-26 10:44] LABS: ALBUMIN 1.8 G/DL (3.2-4.8); ALKALINE PHOSPHATASE 614 IU/L (3-129); ALT (GPT) 47 IU/L (3-49); AST (GOT) 204 IU/L (2-34); CHLORIDE 99 MEQ/L (99-109); CREATININE 0.8 MG/DL (0.6-1.3); GFR ESTIMATE (CALCULATED) > 59 mL/min/ (58.99-99999); GLUCOSE 107 mg/dL (70-99); POTASSIUM 5.3 MEQ/L (3.7-5.4); SODIUM 132 MEQ/L (136-147); TOTAL BILIRUBIN 9.6 MG/DL (0.0-1.0); TOTAL PROTEIN 5.4 G/DL (6.4-8.3); UREA NITROGEN (BUN) 52 mg/dL (9-23)
[2017-08-26 10:55] LABS: ABS NEUTROPHIL COUNT 9.3; ANISOCYTOSIS 3+; ATYPICAL LYMPHOCYTE 0.9 %; BAND NEUTROPHILS 4.4 % (0-8.0); EOSINOPHIL ABS CT 0.3; EOSINOPHILS 2.6 % (0-5.0); LYMPHOCYTES 5.3 % (15.0-45.0); MACROCYTES 3+; METAMYELOCYTES 0.9 %; MONOCYTES 2.6 % (0-9.0); MYELOCYTES 3.5 %; PLAT.SUFFICIENCY DECREASED; PLATELET CLUMPS PRESENT - PLATELET COUNTS APPEARS DECREASED; SEG.NEUTROPHILS 79.8 % (46.0-76.0)
[2017-08-26 11:32] VITALS: BP 126/55
[2017-08-26] MEDS ORDERED: CIPRO500 MG PO (15:15)
[2017-08-26] MEDS ORDERED: Chronulac,Cephulac,E PO (15:16)
[2017-08-26] MEDS ORDERED: Zeasorb Antifungal T TP (15:18)
[2017-08-26] MEDS ORDERED: OXYCODONE HCL5 MG PO (15:18)
[2017-08-26] MEDS ORDERED: BACTROBAN OINTM22 GM TP (15:18)
[2017-08-26] MEDS ORDERED: HYDROMORPHONE HC2 MG PO (15:18)
[2017-08-26 16:00] VITALS: BP 117/61
[2017-08-26 19:18] VITALS: BP 120/72
== END 2017-08-26 20:00 | DRG 872 ==
LOC: EME 06:57 → EDOF 14:27 → CANRESERV 14:35 → ENRESERV 14:35 → EDOF 15:00 → 4EAST 15:00 → EDOF 15:00 → ENRESERV 15:24 → 4EAST 17:05 → ENRESERV 08-21 14:22 → 3EAST 08-21 15:54
PROVIDERS: Emergency Medicine; Hospitalist; Internal Medicine
DX: A41.9 Sepsis, unspecified organism (principal); L03.115 Cellulitis of right lower limb; L03.116 Cellulitis of left lower limb; B37.89 Other sites of candidiasis; E87.1 Hypo-osmolality and hyponatremia; E87.5 Hyperkalemia; L97.821 Non-pressure chronic ulcer of other part of left lower leg limited to breakdown of skin; L97.811 Non-pressure chronic ulcer of other part of right lower leg limited to breakdown of skin; B96.5 Pseudomonas (aeruginosa) (mallei) (pseudomallei) as the cause of diseases classified elsewhere; D69.6 Thrombocytopenia, unspecified; R74.0 Nonspecific elevation of levels of transaminase and lactic acid dehydrogenase [LDH]; I10 Essential (primary) hypertension; I87.2 Venous insufficiency (chronic) (peripheral); I89.0 Lymphedema, not elsewhere classified; I87.8 Other specified disorders of veins; D64.9 Anemia, unspecified; E83.110 Hereditary hemochromatosis; K72.10 Chronic hepatic failure without coma; K75.81 Nonalcoholic steatohepatitis (NASH); E03.9 Hypothyroidism, unspecified; G47.33 Obstructive sleep apnea (adult) (pediatric); Z96.652 Presence of left artificial knee joint; E66.01 Morbid (severe) obesity due to excess calories; Z68.42 Body mass index [BMI] 45.0-49.9, adult; Z85.05 Personal history of malignant neoplasm of liver; Z85.820 Personal history of malignant melanoma of skin; Z92.21 Personal history of antineoplastic chemotherapy; Z80.8 Family history of malignant neoplasm of other organs or systems; Z82.3 Family history of stroke; S31.109A Unspecified open wound of abdominal wall, unspecified quadrant without penetration into peritoneal cavity, initial encounter; S61.402A Unspecified open wound of left hand, initial encounter; S51.001A Unspecified open wound of right elbow, initial encounter; S51.802A Unspecified open wound of left forearm, initial encounter; S80.822A Blister (nonthermal), left lower leg, initial encounter
CPT/HCPCS: 73610; 80048; 80048 91; 80053; 80076; 80202; 81003; 82140; 83605; 85025; 85027; 87040; 87070; 87075; 87077; 87086; 87186; 87205; 87641; 93005; 93970; 97530 GO; 97530 GP; 99281; 99285; A6212; A6214; A6260; J0690; J1170; J1644; J2543; J3010; J3370; J7030; J7040; J7050